=== PATIENT | male | born 1935 | race Two or more races ===

== ENCOUNTER → 2016-10-13 | Outpatient (CLI) | payer MEDICARE, OTHER ==
[~2016-10-13] MED LIST: ASPIR-LOW81 MG ORAL; BENICAR40 MG ORAL; BUPROPION XL150 MG ORAL; CRESTOR10 M1 PO; DIOVAN40 MG PO; FISH OIL CAP1000 MG ORAL; LORAZEPAM1 MG ORAL; NEXIUM40 MG ORAL; PLAVIX75 MG PO; TAMSULOSIN HCL0.4 MG ORAL; TOPROL XL25 MG ORAL
[2016-10-13 11:28] VITALS: BP 133/60
== END | disposition home or self-care (01) ==
LOC: PAN 11:16
DX: K29.70 Gastritis, unspecified, without bleeding (principal); A04.8 Other specified bacterial intestinal infections
CPT/HCPCS: 83013; 83014

== ENCOUNTER → 2016-12-24 | Outpatient (CLI) | payer MEDICARE, OTHER ==
[2016-12-24 13:52] VITALS: BP 135/60
--- NOTE | 2016-12-24 14:18 | GI Progress Note ---
Assessment/Plan Problems: (1) large polyp colon (2) GERD (gastroesophageal reflux disease) ICD Codes: K21.9 - Gastro-esophageal reflux disease without esophagitis SNOMED: 048170878 (3) Constipation ICD Codes: K59.00 - Constipation, unspecified SNOMED: 50022544 (4) HP gastrits Status: stable Status Narrative Seen with Dr. Gerardo. Assessment/Plan H. Pylori positive >> rx Amoxicillin + Biaxin + omeprazole rx Linzess f/u s/p 2nd colon, large polyp - Tubulovillous adenoma RTC 04/2017 for repeat colonoscopy due to large polyp Subjective Subjective constipation, uses enema every 2-3 days Objective Last 24 Hour Vital Signs Date Time Temp Pulse Resp B/P Pulse Ox O2 Delivery O2 Flow Rate FiO2 12/24/16 13:52 97.9 69 16 135/60 General Appearance: no apparent distress, alert Cardiovascular: normal rate Respiratory/Chest: normal breath sounds, no respiratory distress Abdominal Exam: normal bowel sounds, non tender, soft Objective DATE OF PROCEDURE: 05/06/2016 PROCEDURE: Colonoscopy with snare polypectomy. SURGEON: Humble Gerardo M.D. INDICATION: Large colonic polyp. REASON FOR PROCEDURE: The procedure, risks, benefits, and possible consequences, including hemorrhage, aspiration, perforation and infection, and alternative treatments, were explained to the patient/legal guardian by Dr. Humble Gerardo and the patient/legal guardian understood and accepted these risks. PROCEDURE: After informed consent was obtained and the patient was adequately sedated, first rectal exam was performed, which was normal. Then, the scope was advanced from rectum into the cecum, documented by appendiceal orifice, ileocecal valve, and right upper quadrant palpation. Quality of prep was very good. At the area where the patient had a large sessile polyp last time in the proximal ascending colon, we saw the residual polyp left. This procedure was prolonged. We spent almost half an hour going back and forth with the snare and with piecemeal fashion we removed the polyp almost completely and then we used the tip of the scope to cauterize the rest of the base. There were also two smaller polyps around this one, each about 5 mm, removed with the cold biopsy forceps technique. SUMMARY OF FINDINGS: 1. Status post almost complete, with piecemeal fashion, removal of the residual polyp from the last colonoscopy. 2. Two other smaller polyps were also removed, see above for details. RECOMMENDATIONS: The patient to have another colonoscopy in six months given this large polyp was very difficult, had a piecemeal and just want to make sure the area is completely clear and there is no regrowth. Kirsten De Leon N.P. Dec 24, 2016 14:18
== END | disposition home or self-care (01) ==
LOC: PAN 13:36
DX: K63.5 Polyp of colon (principal); K21.9 Gastro-esophageal reflux disease without esophagitis; K59.00 Constipation, unspecified; K29.70 Gastritis, unspecified, without bleeding
CPT/HCPCS: 99211

== ENCOUNTER 2017-08-26 13:20 | Outpatient (CLI) | payer MEDICARE, OTHER ==
[2017-08-26 13:47] VITALS: BP 116/53
--- NOTE | 2017-08-26 14:12 | GI Initial Consult Note ---
HaleyKirsten Perez N.PYannick 08/26/17 1412: History of Present Illness General Date patient seen: Aug 26, 2017 Time patient seen: 14:07 Referring physician: MONY Reason for Consultation: REPEAT COLONOSCOPY Present Illness HPI 82 year old male patient here today for repeat colonoscopy for large polyp found during his colonoscopy last year 04/2016. Has been feeling a little dizzy lately. Denies any GI symptoms. Denies any unintentional weight loss or changes in dietary habits. No signs of abuse or neglect. Patient is not fall risk. Date of Service: 05/06/16 Endoscopy Procedure Note Indication for Procedure: large polyp Home Meds Reported Medications Fish Oil (Fish Oil 1,000 mg Capsule) 1 Each Capsule, 2000 MG ORAL DAILY, CAP 05/05/16 Metoprolol Succinate* (TOPROL XL*) 25 Mg Tab.er.24h, 25 MG ORAL DAILY, TAB 03/30/16 Lorazepam* (LORAZEPAM*) 1 Mg Tablet, 1 MG ORAL PRN, TAB 03/24/16 Olmesartan Medoxomil (BENICAR) 40 Mg Tablet, 40 MG ORAL DAILY, TAB 03/24/16 Aspirin* (ASPIR-LOW*) 81 Mg Tablet.dr, 81 MG ORAL DAILY, TAB 03/24/16 Clopidogrel Bisulfate* (PLAVIX*) 75 Mg Tablet, 75 MG PO DAILY, #10 TAB Take 1 tablet by mouth daily. 10/14/12 Rosuvastatin Calcium (Crestor) 10 Mg Tab, 20 MG PO DAILY 10/14/12 Med list reviewed/reconciled: Yes Allergies: Coded Allergies: SULFA (SULFONAMIDE ANTIBIOTICS) (Unverified Allergy, Mild, itching rash, 03/24/16) Uncoded Allergies: SULFA (Allergy, Mild, 10/14/12) RASH AND ITCHING Patient History History Provided By: Patient, Medical Record Family History Narrative (1) large polyp colon (2) HP gastritis Social History: Denies: smoking, alcohol use, drug use, other Review of Systems All Other Systems: negative except mentioned in HPI Physical Exam Vital Signs Date Time Temp Pulse Resp B/P (MAP) Pulse Ox O2 Delivery O2 Flow Rate FiO2 08/26/17 13:47 98.1 62 116/53 96 Sp02 EP Interpretation: reviewed, normal General Appearance: well appearing, no apparent distress, alert Head: normocephalic EENT: PERRL/EOMI, normal ENT inspection Neck: supple Respiratory: normal breath sounds, no respiratory distress Cardiovascular: normal rate Gastrointestinal: normal inspection, non tender, soft, normal bowel sounds, non -distended Rectal: deferred Genitourinary: deferred Musculoskeletal: normal inspection, back normal Neurologic: normal inspection, alert, oriented x3, responsive Psychiatric: normal inspection, judgement/insight normal, memory normal Skin: normal inspection, normal color, no rash, warm/dry, palpation normal, well hydrated Lymphatic: normal inspection, no adenopathy GI: Plan Problems: (1) Colonoscopy planned (2) large polyp colon (3) HP gastrits Plan Colonoscopy scheduled 09/08/17. - CLD & (Nulytely/Suprep/Movi-Prep) prep instructions given and acknowledged by patient. - NPO @ [facility] day prior procedure explained. - Hold Plavix 72 years prior procedure. Seen with Dr. Gerardo. Thank you for this patient referral. MAYCO GERARDO 08/27/17 0952: History of Present Illness Present Illness Home Meds Reported Medications Fish Oil (Fish Oil 1,000 mg Capsule) 1 Each Capsule, 2000 MG ORAL DAILY, CAP 05/05/16 Metoprolol Succinate* (TOPROL XL*) 25 Mg Tab.er.24h, 25 MG ORAL DAILY, TAB 03/30/16 Lorazepam* (LORAZEPAM*) 1 Mg Tablet, 1 MG ORAL PRN, TAB 03/24/16 Olmesartan Medoxomil (BENICAR) 40 Mg Tablet, 40 MG ORAL DAILY, TAB 03/24/16 Aspirin* (ASPIR-LOW*) 81 Mg Tablet.dr, 81 MG ORAL DAILY, TAB 03/24/16 Clopidogrel Bisulfate* (PLAVIX*) 75 Mg Tablet, 75 MG PO DAILY, #10 TAB Take 1 tablet by mouth daily. 10/14/12 Rosuvastatin Calcium (Crestor) 10 Mg Tab, 20 MG PO DAILY 10/14/12 Allergies: Coded Allergies: SULFA (SULFONAMIDE ANTIBIOTICS) (Unverified Allergy, Mild, itching rash, 03/24/16) Uncoded Allergies: SULFA (Allergy, Mild, 10/14/12) RASH AND ITCHING GI: Plan Plan The patient was seen and examined at bedside and all new and available data was reviewed in the patients chart. I agree with the above findings, impression and plan. (Patient seen earlier today. Signature stamp does not reflect patient encounter time.). - [facility] Aug 26, 2017 14:12 MAYCO GERARDO Aug 27, 2017 09:52
== END 2017-08-26 14:00 | disposition home or self-care (01) ==
LOC: PAN 13:20
DX: K63.5 Polyp of colon (principal); Z79.82 Long term (current) use of aspirin; Z88.2 Allergy status to sulfonamides; K29.70 Gastritis, unspecified, without bleeding
CPT/HCPCS: 99211